=== PATIENT | female | born 1995 | race Caucasian/White ===

== ENCOUNTER 2023-10-11 07:06 | Day surgery (SDC) | payer OTHER ==
[2023-10-06 10:36] LABS: BASOPHILS % (AUTO) 0.3 % (0-1); EOSINOPHILS # (AUTO) 0.2 X10'3 (0-0.9); LYMPHOCYTES % (AUTO) 40.7 % (21-51); MEAN CORPUSCULAR HEMOGLOBIN 30.6 PG (27.0-31.0); MEAN CORPUSCULAR HGB CONC 33.8 g/dL (33.0-36.5); MEAN CORPUSCULAR VOLUME 90.6 FL (78-98); MEAN PLATELET VOLUME 7.4 FL (7.4-10.4); MONOCYTES # (AUTO) 0.5 X10'3 (0-0.9); MONOCYTES % (AUTO) 6.9 % (2-12); NEUTROPHILS # (AUTO) 3.7 X10'3 (1.8-7.7); NEUTROPHILS % (AUTO) 49.1 % (42-75); PRE OP HEMATOCRIT 44.5 % (35.0-45.0); PRE OP PLATELET COUNT 321 X10'3 (140-440); PRE OP WHITE BLOOD COUNT 7.5 10'3 (4.8-10.8); RED BLOOD COUNT 4.92 X10'6 (4.20-5.60); RED CELL DISTRIBUTION WIDTH 13.8 % (11.5-14.5)
[2023-10-06 10:50] LABS: ALBUMIN 3.6 G/DL (3.4-5.0); ALKALINE PHOSPHATASE 98 IU/L (46-116); BLOOD UREA NITROGEN 11 MG/DL (7-18); BUN/CREATININE RATIO 14.1 (10.0-20.0); CALCIUM 8.5 MG/DL (8.5-10.1); CHLORIDE 108 MMOL/L (99-107); CREATININE 0.78 MG/DL (0.40-0.90); PRE OP ALT 23 U/L (30-65); PRE OP ANION GAP 8 (8-16); PRE OP AST 16 U/L (10-37); PRE OP BILIRUB, TOTAL 0.3 MG/DL (0.0-1.0); PRE OP GLUCOSE 81 MG/DL (70-104); PRE OP POTASSIUM 3.8 MMOL/L (3.4-5.1); PRE OP SODIUM 143 MMOL/L (135-145); TOTAL CARBON DIOXIDE 27.3 MMOL/L (24-32); TOTAL PROTEIN 7.2 G/DL (6.4-8.2); eGFR 88 ML/MIN
[2023-10-06 11:00] LABS: HCG SERUM QL NEGATIVE
[~2023-10-11] VITALS: Ht 167.6 cm; Wt 85.5 kg
[2023-10-11] VITALS (10 sets, daily range): BP systolic 122–131; BP diastolic 83–96; PULSE 84–113; RESP 12–17; TEMP 97.9; O2SAT 96–99
[2023-10-11] MEDS: cefazolin 2gm/D5W 100mL 100 ML IV ONE (05:30)
[~2023-10-11 07:06] MED LIST: BUPIVAcaine 0.25% w/Epi /PF 30ml vial ONE; BUPIVAcaine 2.5mg/ml inj 50ml vial (contains preservative) ONE; CLON0.1T2 PO; DILT-94 PO; ETON1VAG8 VG; LIDOcaine 1% 30ml preserv. free vial ONE
[2023-10-11] MEDS ORDERED: ondansetron/PF 4mg/2ml inj IV PRN (08:05)
[2023-10-11] MEDS ORDERED: enalaprilat dihydrate 2.5mg/2ml vial IV PRN (08:05)
[2023-10-11] MEDS ORDERED: ringers solution, lacted 1,000 ML IV SCH (08:05)
[2023-10-11] MEDS ORDERED: meperidine/PF 25mg/ml syringe IV PRN ×2 (08:05)
[2023-10-11] MEDS ORDERED: morphine 2 MG/ML inj. syringe IV PRN (08:05)
[2023-10-11] MEDS ORDERED: proCHLORperazine 10 MG/2 ml inj IV PRN (08:05)
[2023-10-11] MEDS ORDERED: labetalol 20mg/4ml (5mg/ml) syringe IV PRN (08:05)
[2023-10-11] MEDS ORDERED: morphine 4 MG/ML inj SYRINge IV PRN (08:05)
[2023-10-11] MEDS ORDERED: propofol inj 20 ML IV ONE (08:33)
[2023-10-11] MEDS ORDERED: midazolam 1 mg/ML 2ml injection ONE (08:33)
[2023-10-11] MEDS ORDERED: fentaNYL/PF 50MCG/1 ML 2ML syringe ONE (08:33)
[2023-10-11] MEDS ORDERED: LIDOcaine 2% (20mg/ml) 5ml vial ONE (08:33)
[2023-10-11] MEDS ORDERED: dexamethasone sod phosphate 10mg/ml inj ONE (08:53)
[2023-10-11] MEDS ORDERED: sevoflurane 250ml liquid IH ONE (08:53)
[2023-10-11] MEDS: famotidine 20mg tablet PO ONE (08:56)
[2023-10-11] MEDS: ringers solution, lacted 1,000 ML IV SCH (08:57)
[2023-10-11] MEDS: aprepitant 40mg capsule PO ONE (08:58)
[2023-10-11] MEDS ORDERED: ondansetron/PF 4mg/2ml inj ONE (09:19)
[2023-10-11] MEDS ORDERED: meperidine/PF 25mg/ml syringe ONE (09:19)
[2023-10-11] MEDS: BUPIVAcaine 2.5mg/ml inj 50ml vial (contains preservative) IJ ONE (10:03)
[2023-10-11] MEDS: meperidine/PF 25mg/ml syringe IV PRN (11:01)
== END 2023-10-11 11:15 | disposition home or self-care (01) ==
LOC: PAS 07:06
PROVIDERS: ATTEND Surgery
DX: N63.21 Unspecified lump in the left breast, upper outer quadrant (principal); D24.2 Benign neoplasm of left breast; I10 Essential (primary) hypertension; I20.9 Angina pectoris, unspecified; Z79.2 Long term (current) use of antibiotics; Z79.891 Long term (current) use of opiate analgesic; Z79.899 Other long term (current) drug therapy; Z90.89 Acquired absence of other organs; Z98.818 Other dental procedure status; Z98.890 Other specified postprocedural states; Z80.3 Family history of malignant neoplasm of breast
CPT/HCPCS: 19301; 36415; 80053; 84703; 85025; J0690; J1100; J2175; J2250; J2405; J2704; J3010; J3490; J7030; J7120; J8501; Z7506; Z7508; Z7512; A4215; A4618; A6449; A7000; S0020